=== PATIENT | female | born 1990 | race Caucasian/White ===

== ENCOUNTER 2020-09-05 08:00 | Inpatient (IN) | payer OTHER ==
[2020-09-05 08:53] LABS: INR 1.06 (0.83-1.09); PROTHROMBIN TIME (PATIENT) 12.8 SEC (9.7-13.0)
[2020-09-05 08:56] LABS: ACTIVATED PTT 28.9 SECONDS (25.2-36.5); BASO % 0.2 % (0-2.0); EOS % 1.8 % (0-4.5); HEMATOCRIT 32.8 % (32.4-45.2); HEMOGLOBIN 11.1 GM/dL (10.7-15.3); LYMPH % 22.1 % (8-40); MCH 30.1 pg (25.7-33.7); MCHC 33.9 g/dl (32.0-36.0); MEAN CELL VOLUME 88.9 fl (80-96); MEAN PLT VOLUME 8.4 fl (7.5-11.1); MONO % 10.9 % (3.8-10.2); PLATELET COUNT 323 K/MM3 (134-434); RBC 3.69 M/mm3 (3.60-5.2); RDW 13.1 % (11.6-15.6); WHITE BLOOD COUNT 13.1 K/mm3 (4.0-10.0)
[2020-09-05 09:04] LABS: CALCIUM 8.5 mg/dL (8.5-10.1)
[2020-09-05 09:05] LABS: BLOOD UREA NITROGEN 4.1 mg/dL (7-18)
[2020-09-05 09:08] LABS: CREATININE 0.5 mg/dL (0.55-1.3)
[2020-09-05 10:12] VITALS: BMI 36.7
[2020-09-05] MEDS ORDERED: ACETAMINOPHEN 1000 MG/100 ML VIAL (NON FORMULARY) IVPB PRN (15:09)
[2020-09-05] MEDS ORDERED: IBUPROFEN 800 MG/8 ML IJ IVPB PRN (15:09)
[2020-09-05] MEDS ORDERED: oxyCODONE HCL 5 MG TABLET PO PRN (15:09)
[2020-09-05] MEDS ORDERED: SENNOSIDES/DOCUSATE COMBO (SENNA PLUS) TABLET (UD) PO PRN (15:09)
[2020-09-05] MEDS ORDERED: ONDANSETRON 4 MG/2 ML VIAL IVPB PRN (15:09)
[2020-09-05] MEDS ORDERED: OXYTOCIN 20 UNITS in 0.9% NS 20 UNIT/1,000 ML INFUS.BAG IV SCH (15:15)
[2020-09-05] MEDS ORDERED: ACETAMINOPHEN 500 MG TABLET (FP) PO PRN (15:20)
[2020-09-05] MEDS ORDERED: OXYTOCIN 20 UNITS in 0.9% NS 20 UNIT/1,000 ML INFUS.BAG IV ONE (15:23)
[2020-09-06 08:30] LABS: BASO % 0.6 % (0-2.0); EOS % 0.9 % (0-4.5); HEMATOCRIT 29.2 % (32.4-45.2); HEMOGLOBIN 9.9 GM/dL (10.7-15.3); LYMPH % 14.6 % (8-40); MCH 30.5 pg (25.7-33.7); MCHC 33.9 g/dl (32.0-36.0); MEAN CELL VOLUME 89.8 fl (80-96); MEAN PLT VOLUME 9.2 fl (7.5-11.1); MONO % 10.8 % (3.8-10.2); NEUT % 73.1 % (42.8-82.8); PLATELET COUNT 297 K/MM3 (134-434); RBC 3.25 M/mm3 (3.60-5.2); RDW 13.4 % (11.6-15.6); WHITE BLOOD COUNT 15.3 K/mm3 (4.0-10.0)
[2020-09-06] MEDS: PRENATAL VITAMINS W/ FOLIC ACID TABLET (FP) PO SCH (09:53)
[2020-09-06] MEDS ORDERED: PRENATAL PO SCH (10:00)
[2020-09-06] MEDS ORDERED: BISACODYL 10 MG SUPP.RECT RC PRN (15:09)
[2020-09-06] MEDS: IBUPROFEN 600 MG TABLET (FP) PO PRN (16:38)
[2020-09-06] MEDS: SIMETHICONE 80 MG TAB.CHEW (FP) PO PRN (16:38)
[2020-09-06] MEDS: ACETAMINOPHEN 325 MG TABLET (FP) PO PRN (16:38)
[2020-09-07] MEDS: ACETAMINOPHEN 325 MG TABLET (FP) PO PRN (05:20)
[2020-09-07] MEDS: IBUPROFEN 600 MG TABLET (FP) PO PRN (05:21)
[2020-09-07] MEDS: SIMETHICONE 80 MG TAB.CHEW (FP) PO PRN (05:21)
[2020-09-07] MEDS: PRENATAL VITAMINS W/ FOLIC ACID TABLET (FP) PO SCH (10:11)
[2020-09-07 11:52] VITALS: BP 127/68; PULSE 88; TEMP 98.1
== END 2020-09-07 13:25 | disposition home or self-care (01) | DRG 540 ==
LOC: JLDR 08:00 → J3W 17:00
PROVIDERS: ADMIT Specialist; ATTEND Specialist
PROC: 10D00Z1 Extraction of Products of Conception, Low, Open Approach (ICD-10-PCS; principal; 2020-09-05)
DX: O34.219 Maternal care for unspecified type scar from previous cesarean delivery (principal); O42.02 Full-term premature rupture of membranes, onset of labor within 24 hours of rupture; Z3A.38 38 weeks gestation of pregnancy; Z37.0 Single live birth; O98.52 Other viral diseases complicating childbirth; B00.9 Herpesviral infection, unspecified
CPT/HCPCS: 36415; 80048; 85025; 85610; 85730; 86780; 86850; 86900; 86901; 88304-TC; 88307-TC; C9803; U0003; U0005